=== PATIENT | female | born 1945 | race Caucasian/White ===

== ENCOUNTER 2022-07-22 17:22 | Emergency (ER) | payer MEDICARE, OTHER ==
[~2022-07-22] VITALS: Ht 175.3 cm; Wt 82.0 kg
[2022-07-22] MEDS ORDERED: KETOROLAC TROMETH 60MG/2ML VIAL IM ONE (20:45)
[2022-07-22 22:30] VITALS: BP 155/73
== END 2022-07-22 22:33 | disposition home or self-care (01) ==
LOC: ER 17:22
DX: M54.50 Low back pain, unspecified (principal); M79.18 Myalgia, other site; R51.9 Headache, unspecified; W18.2XXA Fall in (into) shower or empty bathtub, initial encounter; Y93.89 Activity, other specified; Y92.091 Bathroom in other non-institutional residence as the place of occurrence of the external cause; Y99.8 Other external cause status
CPT/HCPCS: 70450; 72100; 73030; 73562; 96372; 99285; J1885